=== PATIENT | female | born 1955 | race Caucasian/White ===

== ENCOUNTER 2018-07-26 05:51 | Day surgery (SDC) | payer OTHER ==
[2018-07-26] MEDS ORDERED: Lactated Ringers 1,000 ML IV SCH (06:30)
[2018-07-26] MEDS ORDERED: Lactated Ringers 1,000 ML IV ONE (08:09)
[2018-07-26 09:20] VITALS: BP 132/81; PULSE 101; O2SAT 99
--- NOTE | 2018-07-26 09:22 | OP ---
SURGERY DATE/TIME: 07/26/2018 0740 PREOPERATIVE DIAGNOSIS: Screening colonoscopy. POSTOPERATIVE DIAGNOSIS: Normal colon. PROCEDURE: Colonoscopy. SURGEON: Marv Dixon M.D. ANESTHESIA: MAC by Chris Estrada CRNA. ESTIMATED BLOOD LOSS: None. SPECIMENS: None. DESCRIPTION OF PROCEDURE: After informed written consent was obtained, the patient was taken to the endoscopy suite. She underwent monitored anesthesia and digital rectal exam showed normal sphincter tone and no internal lesions. The scope was inserted into the rectum and sequentially the entire colonic mucosa was traversed. The level of cecum was reached and verified with direct visualization of ileocecal valve. Upon withdrawal careful mucosal inspection revealed no gross abnormalities. Prior to withdrawal retroflexion was performed and showed no internal lesions. The scope was removed and the patient was transferred to the recovery room in good condition.
== END 2018-07-26 09:37 | disposition home or self-care (01) ==
LOC: SDC 05:51
PROVIDERS: ATTEND Family Medicine
DX: Z12.11 Encounter for screening for malignant neoplasm of colon (principal); E11.9 Type 2 diabetes mellitus without complications; F41.9 Anxiety disorder, unspecified
CPT/HCPCS: 82962

== ENCOUNTER 2018-11-16 07:31 | Day surgery (SDC) | payer OTHER ==
--- NOTE | 2018-11-14 14:10 | HP ---
DATE OF SURGERY: 11/16/2018 ANTICIPATED PROCEDURE: Laparoscopic cholecystectomy, liver biopsy. HISTORY OF PRESENT ILLNESS: The patient has upper abdominal pain. Ultrasound positive. Seen and examined. Elevated liver enzymes. PAST MEDICAL HISTORY: ALLERGIES: NAPROSYN. MEDICATIONS: See list. PAST SURGICAL HISTORY: Colonoscopy. Orthopedic surgery. SOCIAL HISTORY: Negative. FAMILY HISTORY: Negative. REVIEW OF SYSTEMS: Inflammatory bowel disease, RA osteoporosis, depression. PHYSICAL EXAMINATION: VITAL SIGNS: Normal. CHEST: Clear. COR: Regular. ABDOMEN: Satisfactory. IMPRESSION: Symptomatic cholelithiasis. Elevated liver enzymes. PLAN: Laparoscopic cholecystectomy, liver biopsy.
[~2018-11-16 07:31] MED LIST: Lactated Ringers 0 ML IV ONE; Lactated Ringers 1,000 ML IV ONE; Lactated Ringers 1,000 ML IV SCH; MEFOXIN 2 GM PREMIX** 2 GM/50 ML ML IV ONE; Sensorcaine 0.25% 10 ML ONE
[2018-11-16] MEDS ORDERED: BRIDION 200MG/2ML IV ONE (07:32)
[2018-11-16] MEDS ORDERED: Decadron 4 MG INJ IV ONE (07:32)
[2018-11-16] MEDS ORDERED: TORAdol 30 mg Injection IJ ONE (07:32)
[2018-11-16] MEDS ORDERED: SUBLIMAZE 100 MCG/2 ML IV ONE (07:32)
[2018-11-16] MEDS ORDERED: BREVIBLOC 100 MG/10 ML IV ONE (07:32)
[2018-11-16] MEDS ORDERED: DIPRIVAN 200 MG/20 ML IV ONE (07:32)
[2018-11-16] MEDS ORDERED: Zofran 4 MG/2 ML VIAL IV ONE (07:32)
[2018-11-16] MEDS ORDERED: Zemuron 100 MG/10 ML IV ONE (07:32)
[2018-11-16] MEDS ORDERED: Quelicin Fliptop 200 MG/10 ML IJ ONE (07:32)
[2018-11-16] MEDS ORDERED: SUBLIMAZE 100 MCG/2 ML ONE (11:59)
[2018-11-16] MEDS ORDERED: Zofran 4 MG/2 ML VIAL ONE (11:59)
[2018-11-16] MEDS ORDERED: Compazine 10 MG/2 ML ONE (12:13)
[2018-11-16 12:43] VITALS: O2SAT 92
[2018-11-16 13:14] VITALS: PULSE 89
--- NOTE | 2018-11-16 13:22 | OP ---
SURGERY DATE/TIME: 11/16/2018 1113 PREOPERATIVE DIAGNOSIS: Symptomatic cholelithiasis, elevated liver functions. POSTOPERATIVE DIAGNOSIS: Cholesterolosis of gallbladder, cholelithiasis of gallbladder. PROCEDURES: 1) Laparoscopic cholecystectomy. 2) Liver biopsy. SURGEON: Dr. Gomez. ANESTHESIA: General. ESTIMATED BLOOD LOSS: None. DRAINS: None. COMPLICATIONS: None. CONDITION: Stable. INDICATIONS: A patient requiring cholecystectomy. DESCRIPTION OF PROCEDURE AND FINDINGS: Taken to surgery. General anesthetic, routine prep and drape. Time out performed. Veress needle inserted. Opening pressure of 1, insufflating pressure 14. Four - 5's. Good visualization. Cystic duct defined. Cystic artery defined. There was obvious cholesterolosis of the gallbladder. Cystic duct triply clipped and transected. Cystic artery triply clipped and transected. Gallbladder rolled out of gallbladder fossa. The gallbladder delivered through upper abdominal port widened slightly and pulled out. Closed with hole closure device. A liver biopsy was taken off the free edge of the liver with cup biopsy forceps and electrocoagulated. The field was totally dry. CO2 was exsufflated. Skin closed with 4-0 Vicryl and Steri-Strips. The patient tolerated the procedure satisfactorily.
[2018-11-16 13:23] VITALS: BP 161/90
== END 2018-11-16 13:26 | disposition home or self-care (01) ==
LOC: SDC 07:31
PROVIDERS: ATTEND Surgery
DX: K80.20 Calculus of gallbladder without cholecystitis without obstruction (principal); R94.5 Abnormal results of liver function studies; R10.10 Upper abdominal pain, unspecified; E11.9 Type 2 diabetes mellitus without complications; Z79.84 Long term (current) use of oral hypoglycemic drugs; Z79.899 Other long term (current) drug therapy
CPT/HCPCS: 82962; J0330; J0694; J1100; J1885; J2405; J2704; J3010

== ENCOUNTER 2020-04-09 07:53 | Day surgery (SDC) | payer OTHER ==
[~2020-04-09 07:53] MED LIST changes: +DIPRIVAN 200 MG/20 ML IV ONE; +Ketamine HCl 50 MG/ML ONE; -Lactated Ringers 0 ML IV ONE; -Lactated Ringers 1,000 ML IV ONE; -Lactated Ringers 1,000 ML IV SCH; -MEFOXIN 2 GM PREMIX** 2 GM/50 ML ML IV ONE; -Sensorcaine 0.25% 10 ML ONE
[2020-04-09] MEDS ORDERED: Depo-Medrol 40 MG/ML IM ONE (07:54)
[2020-04-09] MEDS ORDERED: Lactated Ringers 1,000 ML IV ONE (07:54)
[2020-04-09] MEDS ORDERED: BUPIVACAINE 0.5% VIAL IJ ONE (07:54)
--- NOTE | 2020-04-09 10:46 | XRAY ---
Indication: Left ischial bursa injection. Intraoperative fluoroscopy was provided for 19 seconds. Single digital spot image submitted for interpretation demonstrates posterior needle tip projecting over the left inferior ischial tuberosity. Small amount of contrast injected for needle tip placement. Correlate with intraoperative findings/report.
--- NOTE | 2020-04-09 10:46 | XRAY ---
19 seconds fluoroscopy time in surgery for left ischial bursa injection.
== END 2020-04-09 10:02 | disposition home or self-care (01) ==
LOC: SDC-PAIN 07:53
PROVIDERS: ATTEND Psychiatry & Neurology Pain Medicine
DX: M70.62 Trochanteric bursitis, left hip (principal); M70.61 Trochanteric bursitis, right hip; E11.9 Type 2 diabetes mellitus without complications; M06.9 Rheumatoid arthritis, unspecified; F41.8 Other specified anxiety disorders; G62.9 Polyneuropathy, unspecified; Z79.899 Other long term (current) drug therapy
CPT/HCPCS: 20610; 72170; 77002; 82962; J1030; J2704; Q9966

== ENCOUNTER 2020-09-10 11:47 | Day surgery (SDC) | payer OTHER ==
[2020-09-10] MEDS ORDERED: Depo-Medrol 40 MG/ML IM ONE (11:48)
[2020-09-10] MEDS ORDERED: Xylocaine 1% Vial 30 ML PF IJ ONE (11:48)
[2020-09-10] MEDS ORDERED: BUPIVACAINE 0.5% VIAL IJ ONE (11:48)
--- NOTE | 2020-09-10 15:15 | XRAY ---
Indication: Left knee injection. Intraoperative fluoroscopy provided for 7 seconds. Single digital spot image submitted for interpretation demonstrates needle tip projecting over the left femur intercondylar notch. Small amount of contrast injected for needle tip placement. Correlate with intraoperative findings/report.
--- NOTE | 2020-09-10 15:17 | XRAY ---
7 seconds fluoroscopy time in surgery for intra-articular injection of the left knee.
== END 2020-09-10 14:32 | disposition home or self-care (01) ==
LOC: SDC-PAIN 11:47
PROVIDERS: ATTEND Psychiatry & Neurology Pain Medicine
DX: M17.12 Unilateral primary osteoarthritis, left knee (principal); E11.9 Type 2 diabetes mellitus without complications; M06.9 Rheumatoid arthritis, unspecified; G62.9 Polyneuropathy, unspecified; F41.9 Anxiety disorder, unspecified; F32.9 Major depressive disorder, single episode, unspecified; M19.90 Unspecified osteoarthritis, unspecified site; Z79.899 Other long term (current) drug therapy
CPT/HCPCS: 20610; 73560; 77002; 82947; J1030; J2001; Q9966

== ENCOUNTER 2021-06-15 14:33 | Emergency (ER) | payer OTHER ==
--- NOTE | 2021-06-15 15:11 | ERPHSYRPT ---
- History of Present Illness Time Seen by Provider: 06/15/21 14:55 Source: patient Exam Limitations: no limitations Patient Subjective Stated Complaint: weakness Triage Nursing Assessment: Patient ambulated back to ED and transferred to bed per self. Patient A+O x3. Patient's skin pink, warm and dry. Patient states she was covid positive on June 10, 2021 and symptoms started on 06/06/2021. Patient got out of isolation on Tuesday06/12/2021. Patient complains of cough, headache, nausea, diarrhea. Patient denies escobar or discomfort. Physician History: Patient is a 65-year-old female presents to our ED with complaints of generalized weakness. Patient has been symptomatic since 06/06/2021. Patient was diagnosed with Covid on June 10. Since then patient has been in isolation. Patient states she feels very weak. Patient currently getting monoclonal infusions. Patient complains of a cough headache mild nausea and diarrhea. No vomiting. No rash. Patient currently afebrile. Symptoms are mild to moderate in intensity. No specific worsening or improving factors. Patient voices no other complaints or concerns at this time. Timing/Duration: day(s) Severity: moderate (9 days ago) Modifying Factors: Improves With: nothing Associated Symptoms: nausea, cough, other (Generalized weakness), No fever Allergies/Adverse Reactions: naproxen Allergy (Verified 06/15/21 14:46) Rash eyes swollen Home Medications: Clonidine HCl 0.1 mg [Catapres 0.1 MG] 0.1 mg PO QHS 07/21/18 [History] Diclofenac Sodium [Voltaren] 75 mg PO DAILY 07/21/18 [History] Melatonin/Pyridoxine HCl (B6) [Melatonin-Vit B6 5-10 mg Tab] 1 each PO QHS 07/21/18 [History] Metformin HCl 500 mg [Glucophage 500 MG] 500 mg PO BIDWM 07/21/18 [History] Zolpidem Tartrate [Ambien] 5 mg PO QHS 07/21/18 [History] Chromium Picolinate 400 mcg PO DAILY 07/26/18 [History] Hx Influenza Vaccination/Date Given: No Hx Pneumococcal Vaccination/Date Given: No Immunizations Up to Date: Yes Travel Risk - International Travel Have you traveled outside of the country in past 3 weeks: No - Coronavirus Screening Are you exhibiting any of the following symptoms?: No Close contact with a COVID-19 positive Pt in past 14-21 Days: Yes - Vaccine Status Have you recieved a Covid-19 vaccination: No - Review of Systems Constitutional: No Symptoms, No Fever, No Chills Eyes: No Symptoms Ears, Nose, & Throat: No Symptoms Respiratory: No Symptoms, No Cough, No Dyspnea Cardiac: No Symptoms, No Chest Pain, No Edema, No Syncope Abdominal/Gastrointestinal: No Symptoms, No Abdominal Pain, No Nausea, No Vomiting, No Diarrhea Genitourinary Symptoms: No Symptoms, No Dysuria Musculoskeletal: No Symptoms, No Back Pain, No Neck Pain Skin: No Symptoms, No Rash Neurological: No Symptoms, No Dizziness, No Focal Weakness, No Sensory Changes Psychological: No Symptoms Endocrine: No Symptoms Hematologic/Lymphatic: No Symptoms Immunological/Allergic: No Symptoms All Other Systems: Reviewed and Negative - Past Medical History Pertinent Past Medical History: Yes Neurological History: No Pertinent History ENT History: No Pertinent History Cardiac History: No Pertinent History Respiratory History: No Pertinent History Endocrine Medical History: Diabetes Type II, Other Musculoskeletal History: Osteoarthritis, Osteoporosis, Rheumatoid Arthritis GI Medical History: No Pertinent History History: No Pertinent History Psycho-Social History: Anxiety, Depression Female Reproductive Disorders: Breast Cancer Other Medical History: DMII diagnosed 10/2017, elevated liver enzymes, negative EKG, - Past Surgical History Past Surgical History: Yes Neuro Surgical History: No Pertinent History Cardiac: No Pertinent History Respiratory: No Pertinent History Gastrointestinal: No Pertinent History Genitourinary: No Pertinent History Musculoskeletal: Orthopedic Surgery Female Surgical History: Section, Lumpectomy Other Surgical History: Fissure repair. lymph node drained 4 months ago. knee scope - Social History Smoking Status: Former smoker Exposure to second hand smoke: No Drug Use: none Patient Lives Alone: Yes - Female History Hx Now: No - Nursing Vital Signs Nursing Vital Signs: Initial Vital Signs Temperature 97.9 F 06/15/21 14:48 Pulse Rate 87 06/15/21 14:48 Respiratory Rate 18 06/15/21 14:48 Blood Pressure 176/96 06/15/21 14:48 O2 Sat by Pulse Oximetry 97 06/15/21 14:48 Pain Scale Pain Intensity 4 - Physical Exam General Appearance: no apparent distress, alert Eye Exam: PERRL/EOMI, eyes nml inspection Ears, Nose, Throat Exam: normal ENT inspection, TMs normal, pharynx normal, moist mucous membranes Neck Exam: normal inspection, non-tender, supple, full range of motion Respiratory Exam: normal breath sounds, lungs clear, airway intact, No res piratory distress Cardiovascular Exam: regular rate/rhythm, normal heart sounds, normal peripheral pulses Gastrointestinal/Abdomen Exam: soft, normal bowel sounds, No tenderness, No mass Pelvic Exam: not done Back Exam: normal inspection, normal range of motion, No CVA tenderness, No vertebral tenderness Extremity Exam: normal inspection, normal range of motion, pelvis stable Neurologic Exam: alert, oriented x 3, cooperative, normal mood/affect, nml cerebellar function, nml station & gait, sensation nml, No motor deficits Skin Exam: normal color, warm, dry, No rash Lymphatic Exam: No adenopathy SpO2 Interpretation: normal SpO2: 97 O2 Delivery: Room Air - Course Nursing assessment & vital signs reviewed: Yes Ordered Tests: Active Orders 24 hr Category Date Time Status IV Insertion STAT Care 06/15/21 16:42 Active CBC W DIFF Stat Lab 06/15/21 17:01 Completed CMP Stat Lab 06/15/21 17:01 Completed CULTURE,URINE Stat Lab 06/15/21 15:05 Received MAGNESIUM Stat Lab 06/15/21 15:13 Completed Manual Differential NC Stat Lab 06/15/21 17:01 Completed TROPONIN Q3H Lab 06/15/21 17:15 Completed TROPONIN Q3H Lab 06/15/21 20:15 Ordered TROPONIN Q3H Lab 06/15/21 23:15 Ordered TROPONIN Q3H Lab 06/16/21 02:15 Ordered TROPONIN Q3H Lab 06/16/21 05:15 Ordered UA W/RFX UR CULTURE Stat Lab 06/15/21 15:05 Completed Medication Summary Generic Name Dose Route Start Last Admin Trade Name Freq PRN Reason Stop Dose Admin Magnesium Sulfate/Dextrose 100 mls @ 100 mls/hr 06/15/21 16:15 06/15/21 17:20 Magnesium 1 Gm / 100 Ml D5w IV 06/15/21 18:14 100 mls/hr Q1H ANAY Administration Discontinued Medications Generic Name Dose Route Start Last Admin Trade Name Freq PRN Reason Stop Dose Admin Sodium Chloride 1,000 mls @ 999 mls/hr 06/15/21 15:50 06/15/21 16:54 Sodium Chloride 0.9% 1000 Ml IV 06/15/21 16:50 Infused .Q1H1M STA Infusion Sodium Chloride Confirm 06/15/21 15:50 Sodium Chloride 0.9% 1000 Ml Administered 06/15/21 15:51 Dose 1,000 mls @ ud .ROUTE .STK-MED ONE Ceftriaxone Sodium/Dextrose 1 g in 50 mls @ 100 mls/hr 06/15/21 15:59 06/15/21 16:32 Rocephin 1 Gm-D5w 50 Ml Bag IV 06/15/21 16:28 Infused STAT STA Infusion Ceftriaxone Sodium/Dextrose Confirm 06/15/21 16:00 Rocephin 1 Gm-D5w 50 Ml Bag Administered 06/15/21 16:01 Dose 1 g in 50 mls @ ud IV .STK-MED ONE Ketorolac Tromethamine 30 mg 06/15/21 15:12 06/15/21 15:52 Ketorolac Tromethamine 30 Mg/Ml Inj IM 06/15/21 15:13 Not Given STAT ONE Ondansetron HCl 4 mg 06/15/21 15:55 06/15/21 15:57 Ondansetron Hcl 4 Mg/2 Ml Vial IV 06/15/21 15:56 4 mg STAT ONE Administration Ondansetron HCl Confirm 06/15/21 15:56 Ondansetron Hcl 4 Mg/2 Ml Vial Administered 06/15/21 15:57 Dose 4 mg .ROUTE .STK-MED ONE Lab/Rad Data: Laboratory Result Diagrams 06/15/21 17:01 06/15/21 17:01 Laboratory Results 06/15/21 06/15/21 06/15/21 Range/Units 17:15 17:01 17:01 WBC 7.0 (4.0-10.5) K/mm3 RBC 4.21 (4.1-5.4) M/mm3 Hgb 12.2 (12.0-16.0) gm/dl Hct 38.1 (35-47) % MCV 90.5 (78-100) fl MCH 29.0 (26-32) pg MCHC 32.0 (32-36) g/dl RDW 12.6 (11.5-14.0) % Plt Count 420 (150-450) K/mm3 MPV 10.3 (7.5-11.0) fl Sodium 135 L (137-145) mmol/L Potassium 4.0 (3.5-5.1) mmol/L Chloride 101 (98-107) mmol/L Carbon Dioxide 26 (22-30) mmol/L Anion Gap 12.3 (5-15) MEQ/L BUN 17 (7-17) mg/dL Creatinine 0.73 (0.52-1.04) mg/dL Estimated GFR > 60.0 ML/MIN Glucose 128 H (74-106) mg/dL Calcium 9.0 (8.4-10.2) mg/dL Magnesium (1.6-2.3) mg/dL Total Bilirubin 1.10 (0.2-1.3) mg/dL AST 62 H (14-36) U/L ALT 54 H (0-35) U/L Alkaline Phosphatase 132 H (38-126) U/L Troponin I < 0.012 (0.000-0.034) ng/mL Serum Total Protein 7.8 (6.3-8.2) g/dL Albumin 4.1 (3.5-5.0) g/dL Urine Color (YELLOW) Urine Appearance (CLEAR) Urine pH (5-6) Ur Specific [place] (1.005-1.025) Urine Protein (Negative) Urine Ketones (NEGATIVE) Urine Blood (0-5) José Manuel/ul Urine Nitrite (NEGATIVE) Urine Bilirubin (NEGATIVE) Urine Urobilinogen (0-1) mg/dL Ur Leukocyte Esterase (NEGATIVE) Urine WBC (Auto) (0-5) /HPF Urine RBC (Auto) (0-2) /HPF U Epithel Cells (Auto) (FEW) /HPF Urine Bacteria (Auto) (NEGATIVE) /HPF Urine Mucus (Auto) (NEGATIVE) /HPF Urine Culture Reflexed (NO) Urine Glucose (NEGATIVE) mg/dL 06/15/21 06/15/21 Range/Units 15:13 15:05 WBC (4.0-10.5) K/mm3 RBC (4.1-5.4) M/mm3 Hgb (12.0-16.0) gm/dl Hct (35-47) % MCV (78-100) fl MCH (26-32) pg MCHC (32-36) g/dl RDW (11.5-14.0) % Plt Count (150-450) K/mm3 MPV (7.5-11.0) fl Sodium (137-145) mmol/L Potassium (3.5-5.1) mmol/L Chloride (98-107) mmol/L Carbon Dioxide (22-30) mmol/L Anion Gap (5-15) MEQ/L BUN (7-17) mg/dL Creatinine (0.52-1.04) mg/dL Estimated GFR ML/MIN Glucose (74-106) mg/dL Calcium (8.4-10.2) mg/dL Magnesium 1.5 L (1.6-2.3) mg/dL Total Bilirubin (0.2-1.3) mg/dL AST (14-36) U/L ALT (0-35) U/L Alkaline Phosphatase (38-126) U/L Troponin I (0.000-0.034) ng/mL Serum Total Protein (6.3-8.2) g/dL Albumin (3.5-5.0) g/dL Urine Color BRENDA (YELLOW) Urine Appearance SLIGHTLY CLOUDY (CLEAR) Urine pH 5.0 (5-6) Ur Specific [place] 1.033 (1.005-1.025) Urine Protein 100 (Negative) Urine Ketones TRACE (NEGATIVE) Urine Blood NEGATIVE (0-5) José Manuel/ul Urine Nitrite NEGATIVE (NEGATIVE) Urine Bilirubin MODERATE (NEGATIVE) Urine Urobilinogen 4 (0-1) mg/dL Ur Leukocyte Esterase LARGE (NEGATIVE) Urine WBC (Auto) 51-100 (0-5) /HPF Urine RBC (Auto) 3-5 (0-2) /HPF U Epithel Cells (Auto) RARE (FEW) /HPF Urine Bacteria (Auto) FEW (NEGATIVE) /HPF Urine Mucus (Auto) SLIGHT (NEGATIVE) /HPF Urine Culture Reflexed YES (NO) Urine Glucose NEGATIVE (NEGATIVE) mg/dL - Progress Progress: improved Progress Note: Patient reassessed. She feels much better. Patient ambulated to the bathroom and felt much stronger. Work-up reveals a urinary tract infection. Patient received a dose of Rocephin IV. Hypomagnesemia was observed on laboratory work- up. 2 g of magnesium infused. IV fluids infused. Troponin negative. Patient now requesting discharge. Alex forwarded to patient's pharmacy. Patient agrees to follow-up with her primary care doctor within 48 hours for reevaluation. She voices no other complaints concerns at this time. Portions of this note were created with voice recognition technology. There may be grammatical, spelling, punctuation or sound alike errors 06/15/21 18:04 Counseled pt/family regarding: lab results, diagnosis, need for follow-up - Departure Departure Disposition: Home Clinical Impression: Urinary tract infection, Hypomagnesemia, Diarrhea, Generalized weakness, Dehydration Condition: Stable Critical Care Time: No Referrals: DAYANA OTTO [employer] DIRECTOR [Primary Care Provider] - Follow up/PCP as directed Additional Instructions: Discharge/Care Plan CANDELARIO NOEL was seen on 06/15/21 in the Emergency Room. The patient was counseled regarding Diagnosis,Lab results, Imaging studies, need for follow up and when to return to the Emergency Room. Prescriptions given: Discharge Note I have spoken with the patient and/or caregivers. I have explained the patient's condition, diagnosis and treatment plan based on the information available to me at this time. I have answered the patient's and/or caregiver's questions and addressed any concerns. The patient and/or caregivers have as good understanding of the patient's diagnosis, condition and treatment plan as can be expected at this point. The vital signs have been stable. The patient's condition is stable and appropriate for discharge from the emergency department. The patient will pursue further outpatient evaluation with the primary care physician or other designated or consulting physician as outlined in the discharge instructions. The patient and/or caregivers are agreeable to this plan of care and follow-up instructions have been explained in detail. The patient and/or caregivers have received these instruction. The patient/and or caregivers are aware that any significant change in condition or worsening of symptoms should prompt an immediate return to this or the closest emergency department or call 911. Prescriptions: Cephalexin Mh 500 mg [Keflex 500 mg] 500 mg PO TID 7 Days #21 cap
[2021-06-15] MEDS ORDERED: TORAdol 30 mg Injection IM ONE (15:12)
[2021-06-15 15:26] LABS: Appearance SLIGHTLY CLOUDY (CLEAR); Bacteria FEW /HPF (NEGATIVE); Bilirubin MODERATE (NEGATIVE); Blood NEGATIVE Ery/ul (0-5); Epithelial Cells RARE /HPF (FEW); Glucose NEGATIVE (NEGATIVE); Ketones TRACE (NEGATIVE); Leukocyte Esterase LARGE (NEGATIVE); Mucus SLIGHT /HPF (NEGATIVE); Nitrite NEGATIVE (NEGATIVE); Protein,Urine Dip 100 (Negative); Specific Gravity 1.033 (1.005-1.025); Urobilinogen 4 mg/dL (0-1); WBC 51-100 /HPF (0-5)
[2021-06-15] MEDS ORDERED: Sodium Chloride 0.9% 1000 ML 1,000 ML ONE (15:50)
[2021-06-15] MEDS ORDERED: Sodium Chloride 0.9% 1000 ML 1,000 ML IV STA (15:50)
[2021-06-15] MEDS ORDERED: Zofran 4 MG/2 ML VIAL IV ONE (15:55)
[2021-06-15] MEDS ORDERED: Zofran 4 MG/2 ML VIAL ONE (15:56)
[2021-06-15] MEDS ORDERED: ROCEPHIN 1 Gm-D5w 50 ml Bag** 1 G/50 ML IVPB IV STA (15:59)
[2021-06-15] MEDS ORDERED: ROCEPHIN 1 Gm-D5w 50 ml Bag** 1 G/50 ML IVPB IV ONE (16:00)
[2021-06-15] MEDS ORDERED: Magnesium 1 Gm / 100 Ml D5W*** 100 ML IV ONE ×2 (16:31→17:20)
[2021-06-15] MEDS: Magnesium 1 Gm / 100 Ml D5W*** 100 ML IV SCH ×2 (16:33→17:20)
[2021-06-15 17:06] LABS: Hematocrit 38.1 % (35-47); Hemoglobin 12.2 gm/dl (12.0-16.0); Mean Cell Volume 90.5 fl (78-100); Mean Platelet Volume 10.3 fl (7.5-11.0); Platelet Count 420 K/mm3 (150-450); Red Blood Count 4.21 M/mm3 (4.1-5.4); Red Cell Distribution Width 12.6 % (11.5-14.0)
[2021-06-15 17:12] LABS: ALBUMIN 4.1 g/dL (3.5-5.0); ALKALINE PHOSPHATASE 132 U/L (38-126); ANION GAP 12.3 MEQ/L (5-15); BLOOD UREA NITROGEN 17 mg/dL (7-17); CHLORIDE 101 mmol/L (98-107); Carbon Dioxide 26 mmol/L (22-30); Creatinine 1 0.73 mg/dL (0.52-1.04); EST GLOMERULAR FILTRATION RATE > 60.0 ML/MIN; Glucose 128 mg/dL (74-106); SGOT/AST 62 U/L (14-36); SGPT/ALT 54 U/L (0-35); SODIUM 135 mmol/L (137-145); Total Protein 7.8 g/dL (6.3-8.2)
[2021-06-15 18:03] VITALS: O2SAT 97
[2021-06-15 18:09] VITALS: BP 172/80; PULSE 80
[2021-06-15 22:24] LABS: Eosinophil 3 % (0.00-3.0); Lymphocytes 9 % (24-44); Monocyte 3 % (0.0-12.0); Neutrophils 85 % (36.0-66.0); Platelet Estimate NORMAL (NORMAL); Total Cells Counted 100
== END 2021-06-15 18:16 | disposition home or self-care (01) ==
LOC: ED 14:33
DX: N39.0 Urinary tract infection, site not specified (principal); R53.1 Weakness; R19.7 Diarrhea, unspecified; E86.0 Dehydration; E83.42 Hypomagnesemia; U07.1 COVID-19; R05.9 Cough, unspecified; R51.9 Headache, unspecified; R11.0 Nausea; E11.8 Type 2 diabetes mellitus with unspecified complications; Z79.84 Long term (current) use of oral hypoglycemic drugs
CPT/HCPCS: 36000; 36415; 80053; 81001; 83735; 84484; 85025; 87086; 96374; 99284; J0696; J2405; J3475

== ENCOUNTER 2021-12-21 11:39 | Emergency (ER) | payer OTHER, SELFPAY ==
--- NOTE | 2021-12-21 11:48 | ERPHSYRPT ---
- History of Present Illness Time Seen by Provider: 12/21/21 11:47 Source: patient Exam Limitations: no limitations Physician History: This is a 66-year-old overweight white female patient of nurse practitioner Mae Lr who also sees a pain specialist for chronic pain issues especially in her left knee, and presents with acute exacerbation of her chronic left knee pain after she fell off a walker 3 days ago. Patient states that her pain does not usually kick in for 2 days. Patient is on nonsteroidal anti-inflammatory drugs as well as hydrocodone at home. Patient has a history of hypertension, osteoporosis, rheumatoid arthritis, and anxiety issues. Patient states that it was hurting her to put weight on the left knee when ambulating. Again, she states her pain did not kick in until yesterday even though the injury was on Tuesday prior to this evaluation. Method of Injury: fell, twisted Occurred: days ago (3) Quality: constant, aching Severity of Pain-Max: moderate Severity of Pain-Current: moderate Lower Extremities Pain: knee: left (Anterior knee) Modifying Factors: Improves With: movement Associated Symptoms: other (Hurts to bear weight but can do so) Allergies/Adverse Reactions: naproxen Allergy (Verified 12/21/21 12:02) Rash eyes swollen Home Medications: Clonidine HCl 0.1 mg [Clonidine 0.1 mg Tablet] 0.1 mg PO QHS 07/21/18 [History] Diclofenac Sodium [Voltaren] 75 mg PO DAILY 07/21/18 [History] Melatonin/Pyridoxine HCl (B6) [Melatonin-Vit B6 5-10 mg Tab] 1 each PO QHS 07/21/18 [History] Metformin HCl 500 mg [Glucophage 500 MG] 500 mg PO BIDWM 07/21/18 [History] Zolpidem Tartrate [Ambien] 5 mg PO QHS 07/21/18 [History] Chromium Picolinate 400 mcg PO DAILY 07/26/18 [History] Hydrocodone/Acetaminophen [Hydrocodone-Acetamin 10-325 mg] 1 ea DAILY 12/21/21 [History] Meloxicam 15 mg [Meloxicam 15 MG] 15 mg PO DAILY 12/21/21 [History] Pregabalin [Lyrica 75 mg Cap] 75 mg PO BID 12/21/21 [History] Hx Influenza Vaccination/Date Given: No Hx Pneumococcal Vaccination/Date Given: No Travel Risk - International Travel Have you traveled outside of the country in past 3 weeks: No - Coronavirus Screening Are you exhibiting any of the following symptoms?: No Close contact with a COVID-19 positive Pt in past 14-21 Days: No - Vaccine Status Have you recieved a Covid-19 vaccination: No - Review of Systems Constitutional: No Symptoms Eyes: No Symptoms Ears, Nose, & Throat: No Symptoms Respiratory: No Symptoms Cardiac: No Symptoms Abdominal/Gastrointestinal: No Symptoms Genitourinary Symptoms: No Symptoms Musculoskeletal: Injury (Left knee) Skin: No Symptoms Neurological: No Symptoms Psychological: No Symptoms Endocrine: No Symptoms Hematologic/Lymphatic: No Symptoms Immunological/Allergic: No Symptoms All Other Systems: Reviewed and Negative - Past Medical History Pertinent Past Medical History: Yes Neurological History: No Pertinent History ENT History: No Pertinent History Cardiac History: No Pertinent History Respiratory History: No Pertinent History Endocrine Medical History: Diabetes Type II, Other Musculoskeletal History: Osteoarthritis, Osteoporosis, Rheumatoid Arthritis GI Medical History: No Pertinent History History: No Pertinent History Psycho-Social History: Anxiety, Depression Female Reproductive Disorders: Breast Cancer Other Medical History: DMII diagnosed 10/2017, elevated liver enzymes, negative EKG, - Past Surgical History Past Surgical History: Yes Neuro Surgical History: No Pertinent History Cardiac: No Pertinent History Respiratory: No Pertinent History Gastrointestinal: No Pertinent History Genitourinary: No Pertinent History Musculoskeletal: Orthopedic Surgery Female Surgical History: Section, Lumpectomy Other Surgical History: Fissure repair. lymph node drained 4 months ago. knee scope - Social History Smoking Status: Former smoker Exposure to second hand smoke: No Drug Use: none Patient Lives Alone: Yes - Nursing Vital Signs Nursing Vital Signs: Initial Vital Signs Temperature 96.8 F 12/21/21 11:53 Pulse Rate 95 H 12/21/21 11:53 Respiratory Rate 18 12/21/21 11:53 Blood Pressure 123/83 12/21/21 11:53 O2 Sat by Pulse Oximetry 97 12/21/21 11:53 Pain Scale Pain Intensity 10 - Physical Exam General Appearance: no apparent distress, alert, anxiety, obese Eyes, Ears, Nose, Throat Exam: normal ENT inspection, moist mucous membranes Neck Exam: normal inspection, non-tender, supple, full range of motion Cardiovascular/Respiratory Exam: chest non-tender, no respiratory distress Gastrointestinal/Abdominal Exam: non-tender Back Exam: normal inspection, normal range of motion, No CVA tenderness, No vertebral tenderness Hips Exam: bilateral: non-tender, normal inspection, normal range of motion, no evidence of injury Legs Exam: bilateral leg: non-tender, normal inspection, normal range of motion, no evidence of injury Knees Exam: right knee: non-tender, left knee: soft tissue tenderness (Anterior knee), bilateral knee: normal inspection, normal range of motion, no evidence of injury Ankle Exam: bilateral ankle: non-tender, normal inspection, normal range of motion, no evidence of injury Foot Exam: bilateral foot: non-tender, normal inspection, normal range of motion, no evidence of injury Neuro/Tendon Exam: normal sensation, normal motor functions, normal tendon functions, responds to pain, no evidence tendon injury Mental Status Exam: alert, oriented x 3, cooperative Skin Exam: normal color, warm, dry SpO2 Interpretation: normal O2 Delivery: Room Air - Course Nursing assessment & vital signs reviewed: Yes Ordered Tests: Active Orders 24 hr Category Date Time Status KNEE (3 VIEWS) Stat Exams 12/21/21 12:07 Completed Medication Summary Discontinued Medications Generic Name Dose Route Start Last Admin Trade Name Freq PRN Reason Stop Dose Admin Methylprednisolone Sodium 0 mg 12/21/21 12:18 Succinate 125 mg/ Sterile IM 12/21/21 12:19 Water 2 ml STAT ONE Hydromorphone HCl 1 mg 12/21/21 12:18 Hydromorphone 1 Mg/1ml Inj 1 Mg/Ml Syringe IM 12/21/21 12:19 STAT ONE Ondansetron HCl 4 mg 12/21/21 12:19 Zofran 4 Mg/Udtablet Orally Disintegrating PO 12/21/21 12:20 STAT ONE - Progress Progress: improved, pain not gone completely Progress Note: 12/21/21 12:30 X-ray left knee shows a small nonspecific effusion. There are degenerative changes noted. There is no acute fracture or dislocation. Counseled pt/family regarding: diagnosis, need for follow-up, rad results - Departure Departure Disposition: Home Clinical Impression: Left anterior knee pain, Effusion of left knee Condition: Stable Critical Care Time: No Referrals: DAYANA LR NP [Primary Care Provider] - Follow up/PCP as directed Additional Instructions: Follow-up with your nurse practitioner for further evaluation and management. Follow-up with your pain specialist for further evaluation management. Take your medication as prescribed.
[2021-12-21] MEDS ORDERED: solu-MEDROL 125 MG, Sterile H2O 10 ml 2 ML IM ONE ×2 (12:18)
[2021-12-21] MEDS ORDERED: Hydromorphone 1 mg/ml Injection IM ONE (12:18)
[2021-12-21] MEDS ORDERED: ZOFRAN ODT 4 MG PO ONE (12:19)
--- NOTE | 2021-12-21 12:27 | XRAY ---
Indication: Pain. Comparison: None 3 view left knee demonstrates mild/moderate tricompartmental degenerative changes greatest medial compartment and small nonspecific effusion. 8 mm medial tibial plateau heterotopic ossification either degenerative versus old injury. Remaining knee unremarkable.
[2021-12-21] MEDS ORDERED: ZOFRAN ODT 4 MG ONE (12:29)
[2021-12-21] MEDS ORDERED: Sterile H2O 10 ml IJ ONE (12:29)
[2021-12-21] MEDS ORDERED: Hydromorphone 1 mg/ml Injection ONE (12:30)
[2021-12-21] MEDS ORDERED: solu-MEDROL ONE (12:30)
[2021-12-21 12:46] VITALS: BP 108/80; PULSE 88; O2SAT 96
== END 2021-12-21 12:52 | disposition home or self-care (01) ==
LOC: ED 11:39
DX: M25.562 Pain in left knee (principal); M25.462 Effusion, left knee; W07.XXXA Fall from chair, initial encounter; I10 Essential (primary) hypertension; E11.9 Type 2 diabetes mellitus without complications; Z79.84 Long term (current) use of oral hypoglycemic drugs; Z79.891 Long term (current) use of opiate analgesic; Z79.899 Other long term (current) drug therapy; Z28.310 Unvaccinated for COVID-19
CPT/HCPCS: 73562; 96372; 99284; J1170; J2930; Q0162

== ENCOUNTER 2023-01-25 07:19 | Day surgery (SDC) | payer MEDICARE ==
[~2023-01-25 07:19] MED LIST changes: +Ak-Dilate OPHTHALMIC*** 1.065 ML, Cyclogyl 1% OPHTH SOL 1.065 ML, GATIFLOXACIN 0.5% OPH... OP ONE; +BETADINE 5% OPHTHALMIC 30 ML OP ONE; -DIPRIVAN 200 MG/20 ML IV ONE; -Ketamine HCl 50 MG/ML ONE; +Lactated Ringers 1,000 ML IV ONE; +Lactated Ringers 1,000 ML IV SCH; +NON-FORMULARY ITEM OP ONE; +TETRACAINE 0.5% STERI-UNIT SOL OP ONE; +cefUROXime sodium 0.005 GM in Sodium Chloride Flush 30 ML*** 0.5 ML IJ ONE
[2023-01-25] MEDS ORDERED: Epinephrine Preservative Free 1 MG/ML IJ ONE (07:20)
[2023-01-25] MEDS ORDERED: ACETAZOLAMIDE 250 MG TABLET PO ONE (09:00)
[2023-01-25] MEDS ORDERED: Zofran 4 MG/2 ML VIAL IV PRN (09:00)
[2023-01-25] MEDS ORDERED: DIPRIVAN 200 MG/20 ML IV ONE ×2 (10:08→10:21)
[2023-01-25 10:54] VITALS: BP 164/87; PULSE 80; O2SAT 95
== END 2023-01-25 11:00 | disposition home or self-care (01) ==
LOC: SDC 07:19
PROVIDERS: ATTEND Ophthalmology
DX: H25.811 Combined forms of age-related cataract, right eye (principal); E11.9 Type 2 diabetes mellitus without complications
CPT/HCPCS: 82947; C1780; J0171; J2704; A9270-GY

== ENCOUNTER 2023-03-29 08:32 | Day surgery (SDC) | payer MEDICARE, OTHER ==
[~2023-03-29 08:32] MED LIST changes: +ACETAZOLAMIDE 250 MG TABLET PO ONE; -Lactated Ringers 1,000 ML IV ONE; +Zofran 4 MG/2 ML VIAL IV PRN
[2023-03-29] MEDS ORDERED: Epinephrine Preservative Free 1 MG/ML IJ ONE (08:33)
[2023-03-29] MEDS ORDERED: Lactated Ringers 1,000 ML IV ONE (09:09)
[2023-03-29] MEDS ORDERED: Xylocaine-Mpf 2% 5 Ml Vial ONE (12:17)
[2023-03-29] MEDS ORDERED: DIPRIVAN 200 MG/20 ML IV ONE ×2 (12:17→12:26)
[2023-03-29 12:53] VITALS: TEMP 96.7
[2023-03-29 12:56] VITALS: BP 148/85; PULSE 82; RESP 14; O2SAT 93
== END 2023-03-29 13:05 | disposition home or self-care (01) ==
LOC: SDC 08:32
PROVIDERS: ATTEND Ophthalmology
DX: H25.812 Combined forms of age-related cataract, left eye (principal); E11.9 Type 2 diabetes mellitus without complications
CPT/HCPCS: 82947; J0171; J2704; A9270-GY

== ENCOUNTER 2023-08-31 08:10 | Day surgery (SDC) | payer MEDICARE, SELFPAY ==
[2023-08-31] MEDS ORDERED: LIDOCAINE HCL 2% 100 MG/5 ML IJ ONE (08:11)
[2023-08-31] MEDS ORDERED: DIPRIVAN 200 MG/20 ML IV ONE (10:03)
[2023-08-31] MEDS ORDERED: Lactated Ringers 1,000 ML IV ONE (10:22)
--- NOTE | 2023-08-31 11:26 | XRAY ---
Indication: Left L4-S1 MBB. Intraoperative fluoroscopy provided for 16 seconds. Single digital spot image submitted for interpretation demonstrates posterior needle tips projecting over the expected left L4-S1 nerve roots. Correlate with intraoperative findings/report.
--- NOTE | 2023-08-31 12:06 | XRAY ---
16 seconds of fluoroscopy was used in surgery for a left L4-S1 MBB.
== END 2023-08-31 10:37 | disposition home or self-care (01) ==
LOC: SDC-PAIN 08:10
PROVIDERS: ATTEND Psychiatry & Neurology Pain Medicine
DX: M47.816 Spondylosis without myelopathy or radiculopathy, lumbar region (principal); E11.9 Type 2 diabetes mellitus without complications
CPT/HCPCS: 64493; 64494; 72020; 77002; 82947; J2704

== ENCOUNTER → 2024-02-22 | Day surgery (SDC) | payer MEDICARE, SELFPAY ==
[~2024-02-22] MED LIST changes: -ACETAZOLAMIDE 250 MG TABLET PO ONE; -Ak-Dilate OPHTHALMIC*** 1.065 ML, Cyclogyl 1% OPHTH SOL 1.065 ML, GATIFLOXACIN 0.5% OPH... OP ONE; -BETADINE 5% OPHTHALMIC 30 ML OP ONE; +BUPIVACAINE 0.5% VIAL IJ ONE; +DIPRIVAN 200 MG/20 ML IV ONE; +Lactated Ringers 1,000 ML IV ONE; -Lactated Ringers 1,000 ML IV SCH; -NON-FORMULARY ITEM OP ONE; -TETRACAINE 0.5% STERI-UNIT SOL OP ONE; +Xylocaine-Mpf 2% 5 Ml Vial ONE; -Zofran 4 MG/2 ML VIAL IV PRN; -cefUROXime sodium 0.005 GM in Sodium Chloride Flush 30 ML*** 0.5 ML IJ ONE
--- NOTE | 2024-02-22 10:34 | XRAY ---
Indication: Left L4-S1 MBB. Intraoperative fluoroscopy provided for 13 seconds. Single digital spot images submitted for interpretation demonstrates posterior needle tips projecting over the expected left L4-S1 nerve roots. Correlate with intraoperative findings/report.
--- NOTE | 2024-02-22 10:54 | XRAY ---
13 seconds of fluoroscopy was used in surgery for a left L4-S1 MBB.
== END ==
LOC: SDC-PAIN 08:04
PROVIDERS: ATTEND Psychiatry & Neurology Pain Medicine
DX: M47.816 Spondylosis without myelopathy or radiculopathy, lumbar region (principal); E11.9 Type 2 diabetes mellitus without complications
CPT/HCPCS: 64493; 64494; 72020; 77002; 82947; J2704

== ENCOUNTER 2024-05-23 07:34 | Day surgery (SDC) | payer MEDICARE ==
[2024-05-23] MEDS ORDERED: BUPIVACAINE 0.5% VIAL IJ ONE (07:35)
[2024-05-23] MEDS ORDERED: LIDOCAINE HCL 1% AMPUL 5 ML IJ ONE (07:35)
[2024-05-23] MEDS ORDERED: Depo-Medrol 40 MG/ML IM ONE (07:35)
[2024-05-23] MEDS ORDERED: DIPRIVAN 200 MG/20 ML IV ONE (08:44)
--- NOTE | 2024-05-23 10:27 | XRAY ---
Indication: Left L4-S1 RFA. Intraoperative fluoroscopy provided for 12 seconds. 3 digital spot image submitted for interpretation demonstrates posterior needle tips projecting over the expected left L4-S1 nerve roots. Correlate with intraoperative findings/report.
--- NOTE | 2024-05-23 11:31 | XRAY ---
12 seconds of fluoroscopy was used in surgery for a left L4-S1 RFA.
== END 2024-05-23 09:14 | disposition home or self-care (01) ==
LOC: SDC-PAIN 07:34
PROVIDERS: ATTEND Psychiatry & Neurology Pain Medicine
DX: M47.817 Spondylosis without myelopathy or radiculopathy, lumbosacral region (principal); E11.9 Type 2 diabetes mellitus without complications
CPT/HCPCS: 64635; 64636; 72100; 77002; 82947; J2704

== ENCOUNTER 2024-05-24 07:30 | Day surgery (SDC) | payer MEDICARE ==
[2024-05-24] MEDS ORDERED: BUPIVACAINE 0.5% VIAL IJ ONE (07:31)
[2024-05-24] MEDS ORDERED: LIDOCAINE HCL 1% AMPUL 5 ML IJ ONE (07:31)
[2024-05-24] MEDS ORDERED: DIPRIVAN 200 MG/20 ML IV ONE (08:48)
--- NOTE | 2024-05-24 11:13 | XRAY ---
Indication: Right L4-S1 RFA. Intraoperative fluoroscopy provided for 21 seconds. 5 digital spot image submitted for interpretation demonstrates posterior needle tips projecting over expected right L4-S1 nerve roots. Correlate with intraoperative findings/report.
--- NOTE | 2024-05-24 11:33 | XRAY ---
21 seconds of fluoroscopy was used in surgery for a right L4-S1 RFA.
== END 2024-05-24 09:20 | disposition home or self-care (01) ==
LOC: SDC-PAIN 07:30
PROVIDERS: ATTEND Psychiatry & Neurology Pain Medicine
DX: M47.816 Spondylosis without myelopathy or radiculopathy, lumbar region (principal); E11.9 Type 2 diabetes mellitus without complications
CPT/HCPCS: 64635; 64636; 72100; 77002; 82947; J2704